=== PATIENT | male | born 1975 | race Two or more races ===

== ENCOUNTER 2020-06-12 10:10 | Outpatient (CLI) | payer OTHER ==
[~2020-06-12 10:10] MED LIST: ALLEGRA ALLERGY60 MG; MUCINEX100 MG/BOX; PREDNISONE5 MG/DOSE-
== END 2020-06-12 15:40 | disposition home or self-care (01) ==
LOC: SONOGRAMA 10:10
PROVIDERS: ATTEND Internal Medicine Gastroenterology
DX: K82.8 Other specified diseases of gallbladder (principal); K76.0 Fatty (change of) liver, not elsewhere classified; R10.84 Generalized abdominal pain; E03.8 Other specified hypothyroidism

== ENCOUNTER 2020-10-07 11:47 | Outpatient (CLI) | payer OTHER | END 2020-10-07 11:53 | disposition home or self-care (01) | LOC: SONOGRAMA 11:47 | PROVIDERS: ATTEND Internal Medicine Gastroenterology | DX: K76.0 Fatty (change of) liver, not elsewhere classified (principal); R10.84 Generalized abdominal pain; K82.4 Cholesterolosis of gallbladder ==

== ENCOUNTER 2021-01-04 14:22 | Outpatient (CLI) | payer OTHER | END 2021-01-04 15:12 | disposition home or self-care (01) | LOC: RAD 14:22 | PROVIDERS: ATTEND Orthopaedic Surgery | DX: M25.531 Pain in right wrist (principal); M25.532 Pain in left wrist ==

== ENCOUNTER 2021-10-15 07:15 | Outpatient (CLI) | payer OTHER | END 2021-10-15 07:18 | disposition home or self-care (01) | LOC: LAB 07:15 | PROVIDERS: ATTEND Internal Medicine | DX: U07.1 COVID-19 (principal); B34.1 Enterovirus infection, unspecified ==

== ENCOUNTER 2021-10-15 07:54 | Outpatient (CLI) | payer OTHER | END 2021-10-15 07:55 | disposition home or self-care (01) | LOC: NUCLEAR 07:54 | PROVIDERS: ATTEND Internal Medicine Cardiovascular Disease | DX: I25.110 Atherosclerotic heart disease of native coronary artery with unstable angina pectoris (principal) ==

== ENCOUNTER 2021-11-15 14:16 | Outpatient (CLI) | payer OTHER | END 2021-11-15 14:23 | disposition home or self-care (01) | LOC: RAD 14:16 | PROVIDERS: ATTEND Specialist | DX: J45.998 Other asthma (principal) ==

== ENCOUNTER 2022-02-16 08:27 | Outpatient (CLI) | payer OTHER | END 2022-02-16 08:49 | disposition home or self-care (01) | LOC: SONOGRAMA 08:27 | PROVIDERS: ATTEND Internal Medicine Gastroenterology | DX: R10.84 Generalized abdominal pain (principal) ==

== ENCOUNTER 2024-02-22 12:19 | Emergency (ER) | payer OTHER ==
[~2024-02-22] VITALS: Ht 180.3 cm; Wt 127.0 kg
[2024-02-22] MEDS ORDERED: LIPOFEN50 MG (12:46)
[2024-02-22] MEDS ORDERED: COZAAR100 MG (12:46)
[2024-02-22 13:42] LABS: HEMATOCRIT 37.1 % (39.0-48.0); HEMOGLOBIN 12.9 g/dL (13-16.00); MEAN CELL VOLUME 90.1 fL (80.0-100.00); MEAN CORPUSCULAR HEMOGLOBIN 31.4 pg (27.00-32.0); MEAN CORPUSCULAR HGB CONC 34.9 g/dl (32.0-36.0); PLATELET COUNT 336 K/uL (150-450); RED BLOOD COUNT 4.12 M/uL (4.00-6.00); RED CELL DISTRIBUTION WIDTH 13.4 % (11.5-14.5)
[2024-02-22 14:09] LABS: CALCIUM 9.4 mg/dL (8.5-10.1); CREATININE SERUM 1.31 mg/dL (0.70-1.30); GFR 58.91; POTASSIUM 3.8 mEq/L (3.5-5.1)
== END 2024-02-22 15:23 | disposition home or self-care (01) ==
LOC: ER 12:20
PROVIDERS: Emergency Medicine
DX: J22 Unspecified acute lower respiratory infection (principal); E78.00 Pure hypercholesterolemia, unspecified

== ENCOUNTER 2024-04-02 14:14 | Outpatient (CLI) | payer OTHER ==
[~2024-04-02 14:14] MED LIST changes: +COZAAR100 MG; +LIPOFEN50 MG
== END 2024-04-02 14:23 | disposition home or self-care (01) ==
LOC: TOM 14:14
PROVIDERS: ATTEND Internal Medicine Pulmonary Disease
DX: R06.02 Shortness of breath (principal)

== ENCOUNTER 2024-12-27 12:27 | Emergency (ER) | payer OTHER ==
[~2024-12-27] VITALS: Ht 180.3 cm; Wt 122.0 kg
[2024-12-27] MEDS ORDERED: COZAAR50 MG PO (12:51)
== END 2024-12-27 15:18 | disposition home or self-care (01) ==
LOC: ER 12:27
DX: M25.571 Pain in right ankle and joints of right foot (principal); M77.31 Calcaneal spur, right foot